=== PATIENT | male | born 1960 | race Two or more races ===

== ENCOUNTER 2017-05-04 17:20 | Emergency (ER) | payer OTHER | END 2017-05-04 18:38 | disposition home or self-care (01) | LOC: FTE 17:20 → E/R 18:38 | DX: J20.9 Acute bronchitis, unspecified (principal); I10 Essential (primary) hypertension; E11.9 Type 2 diabetes mellitus without complications; Z79.84 Long term (current) use of oral hypoglycemic drugs; Z79.82 Long term (current) use of aspirin | CPT/HCPCS: 99284; Z7502 ==